=== PATIENT | female | born 1995 | race Two or more races ===

== ENCOUNTER 2022-09-26 00:25 | Emergency (ER) | payer MEDICAID ==
[~2022-09-26] VITALS: Ht 157.5 cm; Wt 88.5 kg
--- NOTE | 2022-09-26 03:00 | NUR ---
BIBS FOR C/O HEADACHE AND DIZZINESS S/P FALL. PT A/OX4. TOLERATING R/A WELL WITH NO RESP DISTRESS. SAFETY MEASURES IN PLACE. CONNECTED PT TO POX AND MONITOR
[2022-09-26] MEDS ORDERED: IBUPROFEN 400 MG TABLET ONE (03:12)
[2022-09-26] MEDS ORDERED: ONDANSETRON 4 MG TAB.RAPDIS ONE (03:12)
--- NOTE | 2022-09-26 03:27 | NUR ---
PT SIGNED WAIVER FORM; VERBALIZED UNDERSTANDING
[2022-09-26] MEDS ORDERED: IBUPROFEN 400 MG TABLET PO ONE (03:30)
[2022-09-26] MEDS ORDERED: ONDANSETRON 4 MG TAB.RAPDIS SL ONE (03:30)
--- NOTE | 2022-09-26 03:32 | NUR ---
PT TAKEN TO CT VIA [facility]
--- NOTE | 2022-09-26 04:14 | NUR ---
Patient discharged to home in stable condition. Written and verbal after care instructions given. Patient verbalizes understanding of instruction. PT ambulatory with a steady gait
[2022-09-26 04:15] VITALS: BP 105/70
== END 2022-09-26 04:15 | disposition home or self-care (01) ==
LOC: ER 00:32
DX: S00.531A Contusion of lip, initial encounter (principal); Z60.2 Problems related to living alone; W01.0XXA Fall on same level from slipping, tripping and stumbling without subsequent striking against object, initial encounter; Y93.89 Activity, other specified; Y92.89 Other specified places as the place of occurrence of the external cause; Y99.8 Other external cause status
CPT/HCPCS: 99284; 70450; Q0162

== ENCOUNTER 2022-12-09 10:07 | Emergency (ER) | payer MEDICAID ==
[~2022-12-09] VITALS: Ht 157.5 cm; Wt 81.6 kg
--- NOTE | 2022-12-09 10:07 | NUR ---
BIBS FOR VAGINAL BLEEDING. A/O X 3, ABLE TO MAKE NEEDS KNOWN, TOLERATING WELL ON ROOM AIR
--- NOTE | 2022-12-09 10:27 | NUR ---
URINE COLLECTED AND SENT
--- NOTE | 2022-12-09 10:30 | NUR ---
ULTRASOUND AT BEDSIDE
[2022-12-09 11:25] LABS: BASOPHILS % (AUTO) 0.2 % (0.0-2.0); EOSINOPHILS % (AUTO) 0.2 % (0.0-6.0); HEMATOCRIT 40 % (33-45); LYMPHOCYTES % (AUTO) 22.6 % (20.0-44.0); MEAN CORPUSCULAR HGB CONC 33 g/dl (31.0-36.0); MEAN CORPUSCULAR VOLUME 90 fL (82-100); MONOCYTES # (AUTO) 0.6 K/uL (0.1-1.30); MONOCYTES % (AUTO) 6.4 % (2.0-12.0); NEUTROPHILS # (AUTO) 6.2 K/uL (1.8-8.9); NEUTROPHILS % (AUTO) 70.6 % (43.0-81.0); PLATELET COUNT (AUTO) 303 K/uL (150-450); RED BLOOD CELL COUNT(AUTO) 4.46 MIL/uL (4.0-5.2); WHITE BLOOD COUNT (AUTO) 8.7 K/uL (4.3-11.0)
[2022-12-09 11:26] LABS: ALBUMIN 3.6 g/dL (3.4-5.0); BILIRUBIN,DIRECT 0.1 mg/dL (0.0-0.2); BILIRUBIN,TOTAL 0.4 mg/dL (0.2-1.0); CALCIUM, SERUM 9.1 mg/dL (8.5-10.1); CREATININE 0.7 mg/dL (0.6-1.3); TOTAL PROTEIN, SERUM 7.1 g/dL (6.4-8.2)
[2022-12-09 11:36] LABS: BILIRUBIN,URINE NEGATIVE (NEGATIVE); COLOR,URINE YELLOW (YELLOW); LEUKOCYTE ESTERASE ,URINE 1+ (NEGATIVE); NITRITE, URINE NEGATIVE (NEGATIVE); PH,URINE 6.5 (5.0-8.0); PROTEIN,URINE TRACE mg/dl (NEGATIVE); UGLUCOSE NEGATIVE (NEGATIVE); UROBILINOGEN,URINE 0.2 EU/dL (0.2)
[2022-12-09 11:55] LABS: BACTERIA,URINE Moderate /HPF (None Seen); WBC,URINE 0-2 /HPF (0-3)
[2022-12-09 12:03] LABS: SQUAMOUS EPITHELIAL CELL,UR Many /HPF (None Seen)
[2022-12-09 13:11] VITALS: BP 110/66
== END 2022-12-09 13:12 | disposition home or self-care (01) ==
LOC: ER 10:08
DX: O36.4XX0 Maternal care for intrauterine death, not applicable or unspecified (principal); O03.4 Incomplete spontaneous abortion without complication; Z3A.08 8 weeks gestation of pregnancy; Z60.2 Problems related to living alone
CPT/HCPCS: 36415; 76805-TC; 80048-TC; 80076-TC; 81001; 84702-TC; 85025-TC; 85730-TC; 86850-TC; 87086-TC

== ENCOUNTER → 2024-11-29 | Emergency (ER) | payer MEDICAID ==
[~2024-11-29] VITALS: Ht 167.6 cm; Wt 63.5 kg
[2024-11-29 20:42] VITALS: BP 105/72; TEMP 98.2
[2024-11-29 21:20] VITALS: O2SAT 95
== END | disposition home or self-care (01) ==
LOC: ER 20:24
DX: M25.572 Pain in left ankle and joints of left foot (principal); Z60.2 Problems related to living alone; W01.0XXA Fall on same level from slipping, tripping and stumbling without subsequent striking against object, initial encounter; Y93.89 Activity, other specified; Y92.89 Other specified places as the place of occurrence of the external cause; Y99.8 Other external cause status
CPT/HCPCS: 73610-TC; 73630-TC